=== PATIENT | female | born 1990 | race Hispanic/Latino ===

== ENCOUNTER 2023-11-06 19:40 | Emergency (ER) | payer BC, MEDICAID, OTHER ==
[~2023-11-06] VITALS: Ht 160 cm; Wt 102.1 kg
[2023-11-06] MEDS ORDERED: LIDOCAINE HCL 1% 20 ML VIAL MISC ONE (20:34)
[2023-11-06] MEDS: LIDOCAINE HCL 1% 20 ML VIAL INJ STA (20:57)
[2023-11-06] MEDS: TETANUS/DIPHTHERIA TOXOID [ADULT] 0.5 ML VIAL IM ONE (20:57)
[2023-11-06 20:58] VITALS: BP 135/70; PULSE 90; RESP 18; O2SAT 98
[2023-11-06] MEDS ORDERED: AMOX1TAB16 PO (23:34)
== END 2023-11-07 00:18 | disposition home or self-care (01) ==
LOC: EDH 19:40
DX: S61.412A Laceration without foreign body of left hand, initial encounter (principal); E11.9 Type 2 diabetes mellitus without complications; Z90.89 Acquired absence of other organs; W54.0XXA Bitten by dog, initial encounter; Y93.89 Activity, other specified; Y92.89 Other specified places as the place of occurrence of the external cause; Y99.8 Other external cause status
CPT/HCPCS: 12001; 73120; 90471; 90714